=== PATIENT | male | born 1965 | race Two or more races ===

== ENCOUNTER → 2025-01-08 | Outpatient (CLI) | payer BC, OTHER, SELFPAY ==
[2025-01-08 10:46] LABS: Basophils # (Auto) 0.1 Thou/mm3 (0.0-0.2); Basophils % (Auto) 1 % (0-2.5); Eosinophils # (Auto) 0.7 Thou/mm3 (0.0-0.5); Eosinophils % (Auto) 8 % (0-10); Hematocrit 43.1 % (41.0-53.0); Immature Granulocytes % (Auto) 0 % (0-0); Immature Granulocytes Auto 0.04 Thou/mm3 (0.00-0.00); Lymphocytes # (Auto) 2.8 Thou/mm3 (1.0-4.8); Lymphocytes % (Auto) 31 % (10-50); Mean Corpuscular HGB Conc 34.8 g/dl (31.0-37.0); Mean Corpuscular Hemoglobin 31.4 pg (25.0-35.0); Mean Corpuscular Volume 90 fL (80-100); Monocytes # (Auto) 0.7 Thou/mm3 (0.0-0.8); Monocytes % (Auto) 8 % (0-12); Neutrophils # (Auto) 4.7 Thou/mm3 (1.8-7.7); Neutrophils % (Auto) 52 % (37-80); Nucleated Red Blood Cell % 0 /100 WBC (0); Platelet Count 288 Thou/mm3 (140-440); RDW Standard Deviation 39.6 fL (35.1-43.9); Red Blood Count 4.78 Miln/mm3 (4.50-5.90)
[2025-01-08 10:56] LABS: Uric Acid 5.6 mg/dL (3.7-9.2)
[2025-01-08 12:19] LABS: Sed Rate (ESR) 16 mm/hr (0-20)
[2025-01-08 15:16] LABS: RA Screen Negative (Negative)
[2025-01-12 03:06] LABS: A. alternata (M6) IgE <0.10 kU/L; A. fumigatus (M3) Class 0/1; A. fumigatus (M3) IgE 0.12 kU/L; Alder (T2) Class 0; Alder (T2) IgE <0.10 kU/L; Bermuda Grass (G2) Class 0; Bermuda Grass (G2) IgE <0.10 kU/L; Birch (T3) Class 0; Birch (T3) IgE <0.10 kU/L; C. herbarum (M2) Class 0; C. herbarum (M2) IgE <0.10 kU/L; Cat Dander (e1) Class 0/1; Cat Dander (e1) IgE 0.11 kU/L; Cockroach (I6) IgE <0.10 kU/L; Common Pigweed (W14) IgE <0.10 kU/L; Common Ragweed (W1) Class 0; Common Ragweed (W1) IgE <0.10 kU/L; D. farinae (D2) Class 0; D. farinae (D2) IgE <0.10 kU/L; D. pteronyssinus (D1) Class 0; D. pteronyssinus (D1) IgE <0.10 kU/L; Dog Dander (E5) IgE <0.10 kU/L; Elm (T8) IgE <0.10 kU/L; Mountain Cedar (T6) Class 0; Mountain Cedar (T6) IgE <0.10 kU/L; Mouse Ur Prot (E72) IgE <0.10 kU/L; Mugwort (W6) Class 0; Mugwort (W6) IgE <0.10 kU/L; Oak White (T7) Class 0; Oak White (T7) IgE <0.10 kU/L; Olive Tree (T9) Class 0; Olive Tree (T9) IgE <0.10 kU/L; P. notatum (M1) Class 0; P. notatum (M1) IgE <0.10 kU/L; Russian Thistle (W11) Class 0; Russian Thistle (W11) IgE <0.10 kU/L; Sycamore (T11) IgE <0.10 kU/L; Timothy Grass (G6) IgE <0.10 kU/L; White Mulberry (T70) IgE <0.10 kU/L
[2025-01-14 06:43] LABS: A. alternata (M6) Class 0; Cockroach (I6) Class 0; Common Pigweed (W14) Class 0; Dog Dander (E5) Class 0; Elm (T8) Class 0; IgE, Total, Serum 175 kU/L (114 OR LESS); Mouse Ur Prot (E72) Class 0; Sycamore (T11) Class 0; Timothy Grass (G6) Class 0; White Mulberry (T70) Class 0
[2025-01-15 06:34] LABS: ANA Screen, IFA NEGATIVE (NEGATIVE); ANCA Screen NEGATIVE (NEGATIVE); IgE, Serum* 163 kU/L (114 OR LESS)
[2025-01-15 06:35] LABS: Myeloperoxidase Ab <1.0 AI (<1.0); Proteinase-3 Ab <1.0 AI (<1.0)
== END | disposition home or self-care (01) ==
PROVIDERS: PCP Internal Medicine Pulmonary Disease; Referring Provider Internal Medicine Pulmonary Disease; Visit Provider Internal Medicine Pulmonary Disease
DX: M25.50 Pain in unspecified joint (principal); M25.562 Pain in left knee; M25.511 Pain in right shoulder; J01.90 Acute sinusitis, unspecified; J30.9 Allergic rhinitis, unspecified
CPT/HCPCS: 36415; 82785; 84550; 85025; 85652; 86003; 86021; 86036; 86038; 86430